=== PATIENT | female | born 1970 | race Caucasian/White ===

== ENCOUNTER 2016-08-07 22:18 | Emergency (ER) | payer BC ==
[2016-08-07] MEDS ORDERED: KETOROLAC 30 MG/ML VIAL IVP ONE (23:01)
[2016-08-07] MEDS ORDERED: PROMETHAZINE HCL 25 MG/ML VIAL IVP ONE (23:01)
[2016-08-07] MEDS ORDERED: 0.9 % SODIUM CHLORIDE 1,000 ML BAG IV ONE (23:02)
[2016-08-07 23:28] LABS: HEMATOCRIT 38.2 % (35.0-47.0); HEMOGLOBIN 12.8 gm/dl (11.6-16.0); MEAN CELL VOLUME 95.7 fl (81-97); MEAN CORPUSCULAR HEMOGLOBIN 32.1 pg (27-33); MEAN CORPUSCULAR HGB CONC 33.5 g/dl (32-36); MEAN PLATELET VOLUME 11.2 fl (7.4-10.4); PLATELET COUNT 272 K/uL (130-400); RED BLOOD COUNT 3.99 M/uL (3.80-5.40); RED CELL DISTRIBUTION WIDTH 12.7 % (11.5-14.5); WHITE BLOOD COUNT W/O DIFF 11.6 K/uL (4.2-12.2)
[2016-08-07 23:40] LABS: ANION GAP 11.8 (7-16); BLOOD UREA NITROGEN 13 mg/dL (7-17); CARBON DIOXIDE 24.2 mmol/L (22-30); CREATININE 0.6 mg/dL (0.52-1.04); EST GLOMERULAR FILTRATION RATE > 60 ml/min; GLUCOSE,RANDOM 104 mg/dL (70-110)
--- NOTE | 2016-08-08 00:26 | Emergency Department Record ---
History of Present Illness - General Chief Complaint: Headache Migraine Stated Complaint: HERRMANN,JAW PAIN,VOMITING Time Seen by Provider: 08/07/16 22:47 Source: Patient Mode of Arrival: Ambulatory Limitations: No limitations - History of Present Illness Initial Comments: pt has her typical migrain with vomiting 5x. Onset/Timin -: Hour(s) Onset Description: Awoke with symptoms Location: Diffuse, Frontal Severity scale (1-10): 8 Quality: Pulsatile, Throbbing, Similar to previous headaches Consistency: Constant Improves With: Rest Worsens With: Light Context: Recent URI Associated Symptoms: Nausea, Photophobia, Vomiting Treatments Prior to Arrival: Migraine medication - Related Data Home Medications Medication Instructions Recorded Confirmed Last Taken Adalimumab [Humira] 60 mg SQ ASDIR 06/16/15 03/31/16 03/30/16 Aripiprazole [Abilify] 5 mg PO DAILY 06/16/15 03/31/16 03/30/16 Duloxetine HCl [Cymbalta] 20 mg PO BID 06/16/15 03/31/16 03/30/16 Gabapentin [Neurontin] 300 mg PO TID 06/16/15 03/31/16 03/30/16 Tramadol HCl [Ultram ER] 300 mg PO DAILY 06/16/15 03/31/16 03/30/16 Hydrocodone/Acetaminophen [[place] 1 tab PO Q8H PRN 03/11/16 03/31/16 03/30/16 7.5mg/325mg] Allergies Allergy/AdvReac Type Severity Reaction Status Date / Time Iodinated Contrast Media - Allergy HIVES Verified 08/07/16 22:31 Oral and Travel Screening - Travel/Exposure Within Last 30 Days Have you traveled within the last 30 days?: No - Travel Symptoms Symptom Screening: None Review of Systems Reviewed: No additional complaints except as noted below Constitutional: Reports: As per HPI. Denies: Chills, Fever, Malaise, Night sweats, Weakness, Weight change Eyes: Reports: As per HPI. Denies: Eye discharge, Eye pain, Photophobia, Vision change ENT: Reports: As per HPI. Denies: Congestion, Dental pain, Ear pain, Epistaxis , Hearing loss, Throat pain Respiratory: Reports: As per HPI. Denies: Cough, Dyspnea, Hemoptysis, Stridor, Wheezes Cardiovascular: Reports: As per HPI. Denies: Arrhythmia, Chest pain, Dyspnea on exertion, Edema, Murmurs, Orthopnea, Palpitations, Paroxysmal nocturnal dyspnea, Rheumatic Fever, Syncope Endocrine: Reports: As per HPI. Denies: Fatigue, Heat or cold intolerance, Polydipsia, Polyuria Gastrointestinal: Reports: As per HPI. Denies: Abdominal pain, Constipation, Diarrhea, Hematemesis, Hematochezia, Melena, Nausea, Vomiting Genitourinary: Reports: As per HPI. Denies: Abnormal menses, Discharge, Dyspareunia, Dysuria, Frequency, Hematuria, Incontinence, Retention, Urgency Musculoskeletal: Reports: As per HPI. Denies: Arthralgia, Back pain, Gout, Joint swelling, Myalgia, Neck pain Skin: Reports: As per HPI. Denies: Bruising, Change in color, Change in hair/ nails, Lesions, Pruritus, Rash Neurological: Reports: As per HPI. Denies: Abnormal gait, Confusion, Headache, Numbness, Paresthesias, Seizure, Tingling, Tremors, Vertigo, Weakness Psychiatric: Reports: As per HPI. Denies: Anxiety, Auditory hallucinations, Depression, Homicidal thoughts, Suicidal thoughts, Visual hallucinations Hematological/Lymphatic: Reports: As per HPI. Denies: Anemia, Blood Clots, Easy bleeding, Easy bruising, Swollen glands Past Medical History - SOCIAL HISTORY Smoking Status: Former smoker - RESPIRATORY Hx Respiratory Disorders: No - CARDIOVASCULAR Hx Cardio Disorders: No - NEURO Hx Neuro Disorders: Yes Hx Headaches: Yes Hx Neuropathy: Yes - GI Hx GI Disorders: No - Hx Genitourinary Disorders: No - ENDOCRINE Hx Endocrine Disorders: No - MUSCULOSKELETAL Hx Musculoskeletal Disorders: Yes Hx Arthritis: Yes (RA) - PSYCH Hx Psych Problems: Yes Hx Anxiety: Yes Hx Depression: Yes - HEMATOLOGY/ONCOLOGY Hx Hematology/Oncology Disorders: No Family Medical History Any Significant Family History?: Yes Hx Cancer: Grandparents Hx Heart Disease: Grandparents Hx HTN: Grandparents Physical Exam - General General Appearance: Alert, Oriented x3, Cooperative, Mild distress - Head Head exam: Normal inspection - Eye Eye exam: Normal appearance, PERRL, EOMI Pupils: Normal accommodation - ENT ENT exam: Normal exam, Mucous membranes dry, Normal external ear exam, Normal orophraynx Ear exam: Normal external inspection. negative: External canal tenderness Nasal Exam: Normal inspection. negative: Discharge, Sinus tenderness Mouth exam: Normal external inspection, Tongue normal Teeth exam: Normal inspection. negative: Dental caries Throat exam: Normal inspection. negative: Tonsillar erythema, Tonsillar exudate - Neck Neck exam: Normal inspection, Full ROM. negative: Tenderness - Respiratory Respiratory exam: Normal lung sounds bilaterally. negative: Respiratory distress - Cardiovascular Cardiovascular Exam: Regular rate, Normal rhythm, Normal heart sounds - GI/Abdominal GI/Abdominal exam: Soft, Normal bowel sounds. negative: Tenderness - Rectal Rectal exam: Deferred - exam: Deferred - Extremities Extremities exam: Normal inspection, Full ROM, Normal capillary refill. negative: Tenderness - Back Back exam: Reports: Normal inspection, Full ROM. Denies: Muscle spasm, Rash noted, Tenderness - Neurological Neurological exam: Alert, CN II-XII intact, Normal gait, Oriented X3 - Psychiatric Psychiatric exam: Normal affect, Normal mood - Skin Skin exam: Dry, Intact, Normal color, Warm Course Vital Signs 08/07/16 22:26 Temperature 98.1 F Pulse Rate [ 76 Pulse Ox Probe] Respiratory 16 Rate Blood Pressure 118/76 [Left Arm] Pulse Ox 100 - Reevaluation(s) Reevaluation #1: 08/08/16 00:23 pt feels much better Medical Decision Making - Lab Data Result diagrams: 08/07/16 23:20 08/07/16 23:20 Lab Results 08/07/16 08/07/16 08/07/16 Range/Units 23:20 23:20 23:20 WBC 11.6 (4.2-12.2) K/uL RBC 3.99 (3.80-5.40) M/uL Hgb 12.8 (11.6-16.0) gm/dl Hct 38.2 (35.0-47.0) % MCV 95.7 (81-97) fl MCH 32.1 (27-33) pg MCHC 33.5 (32-36) g/dl RDW 12.7 (11.5-14.5) % Plt Count 272 (130-400) K/uL MPV 11.2 H (7.4-10.4) fl Neutrophils % 86.0 H (47-80) % Band Neutrophils % 0.0 (0-5) % Lymphocytes % 12.0 L (16-45) % Monocytes % 2.0 (0-9) % Eosinophils % 0.0 (0-6) % Basophils % 0.0 (0-6) % Sodium 136 (136-145) mmol/L Potassium 4.9 (3.5-5.1) mmol/L Chloride 100 (98-107) mmol/L Carbon Dioxide 24.2 (22-30) mmol/L Anion Gap 11.8 (7-16) BUN 13 (7-17) mg/dL Creatinine 0.6 (0.52-1.04) mg/dL Estimated GFR > 60 ml/min Random Glucose 104 (70-110) mg/dL Calcium 9.6 (8.5-10.1) mg/dL Group A Strep Screen Negative (NEGATIVE) Disposition Disposition: Discharge Clinical Impression: Migraine Qualifiers: Migraine type: unspecified Status migrainosus presence: with status migrainosus Intractability: intractable Qualified Code(s): G43.911 - Migraine, unspecified, intractable, with status migrainosus Vomiting Qualifiers: Vomiting type: unspecified Vomiting Intractability: non-intractable Nausea presence: with nausea Qualified Code(s): R11.2 - Nausea with vomiting, unspecified Disposition: Home, Self-Care Condition: (1) Good Instructions: Migraine Headache (ED), Acute Nausea and Vomiting (ED) Additional Instructions: follow up with family doctor. return sooner if worse. Forms: Patient Portal Access
== END 2016-08-08 01:00 | disposition home or self-care (01) ==
LOC: ER 22:18
DX: G43.911 Migraine, unspecified, intractable, with status migrainosus (principal); R11.2 Nausea with vomiting, unspecified; H53.149 Visual discomfort, unspecified
CPT/HCPCS: 99284 ×2; 96374; 96375; 96361; 80048; 87880; 85027; J1885; J2550; J7030

== ENCOUNTER 2016-09-27 02:48 | Emergency (ER) | payer MEDICARE, BC ==
[2016-09-27] MEDS ORDERED: DIPHENHYDRAMINE HCL IV 50 MG/ML VIAL IVP ONE (02:54)
[2016-09-27] MEDS ORDERED: METOCLOPRAMIDE HCL 10 MG/2 ML VIAL IVP ONE ×2 (02:54→03:14)
[2016-09-27] MEDS ORDERED: 0.9 % SODIUM CHLORIDE 1000ML 1,000 ML IV SCH (03:00)
--- NOTE | 2016-09-27 03:04 | Emergency Department Record ---
History of Present Illness - General Chief Complaint: Headache Migraine Stated Complaint: HEADACHE,VOMITING Time Seen by Provider: 09/27/16 02:53 Source: Patient Mode of Arrival: Ambulatory Limitations: No limitations - History of Present Illness Initial Comments: 46 yo female presents to ED with a CC of headache and nausea/vomiting that began approximately 14 hours ago. Patient reports similar symptoms previously related to migraine headaches. Patient denies fevers, chills, neck pain or stiffness symptoms. MD Complaint: Headache Onset/Timin -: Hour(s) Onset Description: Gradual Location: Diffuse Severity: Moderate Severity scale (1-10): 8 Quality: Similar to previous headaches Consistency: Constant, Getting worse Improves With: Nothing Worsens With: None Context: Other Associated Symptoms: Vomiting, Other Other Symptoms: Other Treatments Prior to Arrival: Prescription analgesic Treatment Prior to Arrival Comment:: tramadol 300mg extended release and norco - Related Data Home Medications Medication Instructions Recorded Confirmed Last Taken Adalimumab [Humira] 60 mg SQ ASDIR 06/16/15 09/27/16 03/30/16 Aripiprazole [Abilify] 5 mg PO DAILY 06/16/15 09/27/16 03/30/16 Duloxetine HCl [Cymbalta] 20 mg PO BID 06/16/15 09/27/16 03/30/16 Gabapentin [Neurontin] 300 mg PO TID 06/16/15 09/27/16 03/30/16 Tramadol HCl [Ultram ER] 300 mg PO DAILY 06/16/15 09/27/16 03/30/16 Hydrocodone/Acetaminophen [[place] 1 tab PO Q8H PRN 03/11/16 09/27/16 03/30/16 7.5mg/325mg] Allergies Allergy/AdvReac Type Severity Reaction Status Date / Time Iodinated Contrast Media - Allergy HIVES Verified 08/07/16 22:31 Oral and Travel Screening - Travel/Exposure Within Last 30 Days Have you traveled within the last 30 days?: No - Travel/Exposure Within Last Year Have you traveled outside the [place] in the last year?: No - Additonal Travel Details Have you been exposed to anyone with a communicable illness?: No - Travel Symptoms Symptom Screening: None Review of Systems Constitutional: Denies: Chills, Fever, Malaise, Night sweats Eyes: Denies: Eye discharge, Eye pain ENT: Denies: Congestion, Ear pain, Epistaxis Respiratory: Denies: Cough, Dyspnea Cardiovascular: Denies: Chest pain, Dyspnea on exertion Endocrine: Denies: Fatigue, Heat or cold intolerance Gastrointestinal: Denies: Abdominal pain, Nausea, Vomiting Genitourinary: Denies: Dysuria, Frequency, Hematuria, Incontinence Musculoskeletal: Denies: Arthralgia, Back pain, Gout, Joint swelling Skin: Denies: Bruising, Change in color Neurological: Reports: Headache. Denies: Abnormal gait, Confusion, Seizure Psychiatric: Denies: Anxiety Hematological/Lymphatic: Denies: Anemia, Blood Clots Past Medical History - SOCIAL HISTORY Smoking Status: Former smoker Alcohol Use: Rare Drug Use: None - RESPIRATORY Hx Respiratory Disorders: No - CARDIOVASCULAR Hx Cardio Disorders: No - NEURO Hx Neuro Disorders: Yes Hx Headaches: Yes Hx Neuropathy: Yes - GI Hx GI Disorders: No - Hx Genitourinary Disorders: No - ENDOCRINE Hx Endocrine Disorders: No - MUSCULOSKELETAL Hx Musculoskeletal Disorders: Yes Hx Arthritis: Yes (RA) Hx Fibromyalgia: Yes - PSYCH Hx Psych Problems: Yes Hx Anxiety: Yes Hx Depression: Yes - HEMATOLOGY/ONCOLOGY Hx Hematology/Oncology Disorders: No Family Medical History Any Significant Family History?: No Hx Cancer: Grandparents Hx Heart Disease: Grandparents Hx HTN: Grandparents Physical Exam - General General Appearance: Alert, Oriented x3, Cooperative, Mild distress Limitations: No limitations - Head Head exam: Atraumatic, Normocephalic, Normal inspection Head exam detail: negative: Abrasion, Contusion, Briones's sign, General tenderness, Hematoma, Laceration - Eye Eye exam: Normal appearance. negative: Conjunctival injection, Periorbital swelling, Periorbital tenderness, Scleral icterus - ENT Ear exam: negative: Auricular hematoma, Auricular trauma Nasal Exam: negative: Active bleeding, Discharge, Dried blood, Foreign body Mouth exam: negative: Drooling, Laceration, Muffled voice, Tongue elevation - Neck Neck exam: Normal inspection. negative: Meningismus, Tenderness - Respiratory Respiratory exam: Normal lung sounds bilaterally. negative: Rales, Respiratory distress, Rhonchi, Stridor - Cardiovascular Cardiovascular Exam: Regular rate, Normal rhythm, Normal heart sounds - GI/Abdominal GI/Abdominal exam: Soft. negative: Rebound, Rigid, Tenderness - Rectal Rectal exam: Deferred - exam: Deferred - Extremities Extremities exam: Normal inspection. negative: Calf tenderness, Pedal edema, Tenderness - Back Back exam: Denies: CVA tenderness (R), CVA tenderness (L) - Neurological Neurological exam: Alert, Normal gait, Oriented X3 - Psychiatric Psychiatric exam: Normal affect, Normal mood - Skin Skin exam: Normal color. negative: Abrasion Type of lesion: negative: abrasion Course - Reevaluation(s) Reevaluation #1: 09/27/16 04:22 Patient reports that her symptoms are significantly improved, and appears stable for discharge at this time. Disposition Disposition: Discharge Clinical Impression: Acute headache Qualifiers: Headache type: unspecified Intractability: not intractable Qualified Code(s): R51 - Headache Disposition: Home, Self-Care Condition: (2) Stable Instructions: Acute Headache (ED) Additional Instructions: Return to ED if your symptoms worsen or if you have any concerns. Follow-up with your family doctor in 3-5 days. Forms: Patient Portal Access Time of Disposition: 04:23
[2016-09-27] MEDS ORDERED: KETOROLAC 30 MG/ML VIAL IVP ONE (03:08)
[2016-09-27] MEDS ORDERED: ONDANSETRON HCL IV 4 MG/2 ML VIAL IVP ONE (03:10)
[2016-09-27] MEDS ORDERED: PROMETHAZINE HCL 25 MG in 0.9 % SODIUM CHLORIDE 100ML 50 ML IVP ONE (03:10)
== END 2016-09-27 04:38 | disposition home or self-care (01) ==
LOC: ER 02:48
DX: R51 Headache (principal); R11.2 Nausea with vomiting, unspecified
CPT/HCPCS: 99284 ×2; 96374; 96375; 96361; J1885; J1200; J2765; J7030

== ENCOUNTER 2016-10-08 18:16 | Emergency (ER) | payer BC, MEDICARE ==
--- NOTE | 2016-10-08 18:32 | Emergency Department Record ---
History of Present Illness - General Chief complaint: ENT Stated complaint: SORE THROAT,COUGH,HERRMANN Time Seen by Provider: 10/08/16 18:24 Source: Patient, Family Mode of Arrival: Ambulatory Limitations: No limitations - History of Present Illness Initial comments: 46 yo female presents with about one month of persistent cough, congestion, and sore throat. No nausea, vomiting or diarrhea. The cough is productive. No blood in the sputum. She has noted some swollen glands as well. She saw her PCP about a week ago and was put on Keflex without any significant improvement. She did not have a flu shot or a pneumonia shot. She is not a smoker. She does have RA and take Humira. PCP is Dr Mcghee. No history of asthma, copd, or underlying lung disease. MD complaint: Sore throat, Other (Cough) Onset/Timin -: Month(s) Location: R ear, L ear, Nose, Throat Severity: Mild Severity scale (1-10): 3 Quality: Aching Consistency: Intermittent Improves with: Other medication Worsens with: None Associated Symptoms: Cough, Fever, Sore throat, Other - Related Data Home Medications Medication Instructions Recorded Confirmed Last Taken Adalimumab [Humira] 60 mg SQ ASDIR 06/16/15 10/08/16 10/08/16 Aripiprazole [Abilify] 5 mg PO DAILY 06/16/15 10/08/16 10/08/16 Duloxetine HCl [Cymbalta] 20 mg PO BID 06/16/15 10/08/16 10/08/16 Gabapentin [Neurontin] 300 mg PO TID 06/16/15 10/08/16 10/08/16 Tramadol HCl [Ultram ER] 300 mg PO DAILY 06/16/15 10/08/16 10/08/16 Hydrocodone/Acetaminophen [[place] 1 tab PO Q8H PRN 03/11/16 10/08/16 10/08/16 7.5mg/325mg] Omeprazole 40 mg PO BID 10/08/16 10/08/16 10/08/16 Previous Rx's Medication Instructions Recorded Benzonatate [Tessalon] 1 cap PO Q8H PRN #20 cap 10/08/16 Levofloxacin [Levaquin] 750 mg PO DAILY #7 tab 10/08/16 Allergies Allergy/AdvReac Type Severity Reaction Status Date / Time Iodinated Contrast Media - Allergy HIVES Verified 10/08/16 18:26 Oral and Travel Screening - Travel/Exposure Within Last 30 Days Have you traveled within the last 30 days?: No Review of Systems Constitutional: Denies: Chills, Fever, Night sweats, Weakness Eyes: Denies: Eye discharge, Vision change ENT: Reports: Congestion, Throat pain. Denies: Ear pain, Epistaxis Respiratory: Reports: Cough. Denies: Dyspnea, Hemoptysis, Stridor, Wheezes Cardiovascular: Denies: Chest pain, Palpitations, Syncope Endocrine: Denies: Fatigue Gastrointestinal: Denies: Abdominal pain, Diarrhea, Nausea, Vomiting Genitourinary: Denies: Dysuria, Frequency Musculoskeletal: Denies: Arthralgia, Back pain, Joint swelling, Myalgia, Neck pain Skin: Denies: Bruising, Change in color, Rash Neurological: Denies: Headache Psychiatric: Denies: Anxiety Hematological/Lymphatic: Reports: As per HPI, Swollen glands. Denies: Blood Clots, Easy bleeding, Easy bruising Past Medical History - SOCIAL HISTORY Smoking Status: Former smoker Alcohol Use: None Drug Use: None - RESPIRATORY Hx Respiratory Disorders: No - CARDIOVASCULAR Hx Cardio Disorders: No - NEURO Hx Neuro Disorders: Yes Hx Headaches: Yes Hx Neuropathy: Yes - GI Hx GI Disorders: No - Hx Genitourinary Disorders: Yes Hx UTI: Yes - ENDOCRINE Hx Endocrine Disorders: No - MUSCULOSKELETAL Hx Musculoskeletal Disorders: Yes Hx Arthritis: Yes (RA) Hx Fibromyalgia: Yes - PSYCH Hx Psych Problems: Yes Hx Anxiety: Yes Hx Depression: Yes - HEMATOLOGY/ONCOLOGY Hx Hematology/Oncology Disorders: No Family Medical History Any Significant Family History?: Yes Hx Cancer: Grandparents Hx Heart Disease: Grandparents Hx HTN: Grandparents Physical Exam - General General Appearance: Alert, Oriented x3, Cooperative, No acute distress Limitations: No limitations - Head Head exam: Normal inspection - Eye Eye exam: Normal appearance, PERRL. negative: Conjunctival injection, Periorbital swelling - ENT ENT exam: Normal exam, Mucous membranes moist, Normal orophraynx, TM's normal bilaterally Ear exam: Normal external inspection. negative: External canal tenderness Nasal Exam: Discharge (greenish). negative: Normal inspection, Dried blood, Sinus tenderness Mouth exam: Normal external inspection, Tongue normal Teeth exam: Normal inspection. negative: Dental caries Throat exam: Tonsillar erythema. negative: Tonsillomegaly, Tonsillar exudate, R peritonsillar mass, L peritonsillar mass - Neck Neck exam: Normal inspection, Full ROM, Lymphadenopathy (mild anterior adenopathy, soft and mobile, small). negative: Tenderness - Respiratory Respiratory exam: Normal lung sounds bilaterally. negative: Accessory muscle use, Decreased breath sounds, Prolonged expiratory, Respiratory distress, Rhonchi, Stridor, Wheezes - Cardiovascular Cardiovascular Exam: Regular rate, Normal rhythm, Normal heart sounds - GI/Abdominal GI/Abdominal exam: Soft, Normal bowel sounds. negative: Tenderness - Rectal Rectal exam: Deferred - exam: Deferred - Extremities Extremities exam: Normal inspection, Full ROM, Normal capillary refill. negative: Tenderness - Back Back exam: Reports: Normal inspection, Full ROM. Denies: Muscle spasm, Rash noted, Tenderness - Neurological Neurological exam: Alert, Normal gait, Oriented X3 - Psychiatric Psychiatric exam: Normal affect, Normal mood - Skin Skin exam: Dry, Intact, Normal color, Warm Course Vital Signs 10/08/16 18:18 Temperature 97.9 F Pulse Rate 79 Respiratory 18 Rate Blood Pressure 129/87 Pulse Ox 98 - Reevaluation(s) Reevaluation #1: The influenza swab was negative The CXR report was no acute process The plan will be to DC on levaquin to cover atypical infections and bacterial bronchitis given she is on Humira 10/08/16 18:54 Reevaluation #2: Vitals reviewed. No tachycardia or hypoxia 10/08/16 18:58 Disposition Disposition: Discharge Clinical Impression: Bronchitis Disposition: Home, Self-Care Condition: (1) Good Instructions: Acute Bronchitis (ED) Additional Instructions: Call your doctor for a recheck. Call tomorrow to schedule the next available appointment Return if fever, worse, short of breath or any new concerns Prescriptions: Levofloxacin [Levaquin] 750 mg PO DAILY #7 tab Benzonatate [Tessalon] 1 cap PO Q8H PRN #20 cap PRN Reason: Cough Forms: Patient Portal Access Time of Disposition: 18:56
[2016-10-08] MEDS ORDERED: LEVOFLOXACIN 500 MG TABLET PO ONE (18:41)
[2016-10-08 18:42] LABS: STREP A SCREEN NEGATIVE (NEGATIVE)
[2016-10-08 18:49] LABS: INFLUENZA A NEGATIVE (NEGATIVE); INFLUENZA B NEGATIVE (NEGATIVE)
--- NOTE | 2016-10-14 09:51 | RADIOLOGY REPORT ---
EXAM: CHEST, TWO VIEWS HISTORY: DIFFICULTY BREATHING. TECHNIQUE: Frontal and lateral views of the chest were performed. FINDINGS: The heart size is normal. The lung alvarez are clear. The osseous structures are normal. IMPRESSION: NEGATIVE CHEST EXAMINATION. JOB NUMBER: [id number] MTDD
== END 2016-10-08 19:14 | disposition home or self-care (01) ==
LOC: ER 18:16
DX: J20.9 Acute bronchitis, unspecified (principal); J02.9 Acute pharyngitis, unspecified; F17.210 Nicotine dependence, cigarettes, uncomplicated
CPT/HCPCS: 71020; 86308; 87400; 87880; 99283

== ENCOUNTER 2016-11-03 04:46 | Emergency (ER) | payer BC, MEDICARE ==
[2016-11-03] MEDS ORDERED: 0.9 % SODIUM CHLORIDE 1,000 ML BAG IV ONE (04:53)
[2016-11-03] MEDS ORDERED: DIPHENHYDRAMINE HCL IV 50 MG/ML VIAL IVP ONE (04:53)
[2016-11-03] MEDS ORDERED: METOCLOPRAMIDE HCL 10 MG/2 ML VIAL IVP ONE (04:54)
[2016-11-03] MEDS ORDERED: KETOROLAC 30 MG/ML VIAL IVP ONE (04:54)
--- NOTE | 2016-11-03 05:00 | Emergency Department Record ---
History of Present Illness - General Chief Complaint: Headache Migraine Stated Complaint: JAW PAIN/HEADACHE Time Seen by Provider: 11/03/16 04:51 Source: Patient, Family Mode of Arrival: Ambulatory Limitations: No limitations - History of Present Illness Initial Comments: 46 yo female presents with headache and jaw pain. She states she has a history of frequent headache and jaw pain with the same characteristics. She has some mild light sensitivity and nausea. 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 This episode started last evening and has gradually worsened. No new of unusual features form prior episodes. Gradual worsening. NO fevers. NO swelling or redness of the TMJ regions. PCP is Dr Mcghee in [place]. MD Complaint: Headache, Other (Jaw pain) Onset/Timin -: Hour(s) Onset Description: Gradual Location: Frontal Severity scale (1-10): 9 Quality: Similar to previous headaches Consistency: Constant, Getting worse Improves With: Nothing Worsens With: Light, Movement of head/neck, Noise Associated Symptoms: Nausea, Photophobia, Sensitivity to sound, Vomiting Treatments Prior to Arrival: None - Related Data Home Medications Medication Instructions Recorded Confirmed Last Taken Adalimumab [Humira] 60 mg SQ ASDIR 06/16/15 11/03/16 10/08/16 Aripiprazole [Abilify] 5 mg PO DAILY 06/16/15 11/03/16 10/08/16 Duloxetine HCl [Cymbalta] 20 mg PO BID 06/16/15 11/03/16 10/08/16 Gabapentin [Neurontin] 300 mg PO TID 06/16/15 11/03/16 10/08/16 Tramadol HCl [Ultram ER] 300 mg PO DAILY 06/16/15 11/03/16 10/08/16 Hydrocodone/Acetaminophen [[place] 1 tab PO Q8H PRN 03/11/16 11/03/16 10/08/16 7.5mg/325mg] Omeprazole 40 mg PO BID 10/08/16 11/03/16 10/08/16 Allergies Allergy/AdvReac Type Severity Reaction Status Date / Time Iodinated Contrast Media - Allergy HIVES Verified 10/08/16 18:26 Oral and Travel Screening - Travel/Exposure Within Last 30 Days Have you traveled within the last 30 days?: No Review of Systems Constitutional: Denies: Chills, Fever, Weakness Eyes: Reports: Photophobia. Denies: Eye discharge, Eye pain, Vision change ENT: Denies: Congestion, Throat pain Respiratory: Denies: Cough, Dyspnea, Hemoptysis, Stridor, Wheezes Cardiovascular: Denies: Chest pain, Palpitations, Syncope Endocrine: Denies: Fatigue Gastrointestinal: Reports: Nausea. Denies: Abdominal pain, Diarrhea, Vomiting Genitourinary: Denies: Dyspareunia, Dysuria, Urgency Musculoskeletal: Reports: Neck pain. Denies: Arthralgia, Back pain, Myalgia Skin: Denies: Bruising, Change in color, Rash Neurological: Reports: Headache. Denies: Abnormal gait, Confusion, Numbness, Tingling, Tremors, Vertigo, Weakness Psychiatric: Denies: Anxiety Hematological/Lymphatic: Denies: Blood Clots, Easy bleeding, Easy bruising, Swollen glands Past Medical History - SOCIAL HISTORY Smoking Status: Former smoker Alcohol Use: None Drug Use: None - RESPIRATORY Hx Respiratory Disorders: No - CARDIOVASCULAR Hx Cardio Disorders: No - NEURO Hx Neuro Disorders: Yes Hx Headaches: Yes Hx Neuropathy: Yes - GI Hx GI Disorders: No - Hx Genitourinary Disorders: Yes Hx UTI: Yes - ENDOCRINE Hx Endocrine Disorders: No - MUSCULOSKELETAL Hx Musculoskeletal Disorders: Yes Hx Arthritis: Yes (RA) Hx Fibromyalgia: Yes - PSYCH Hx Psych Problems: Yes Hx Anxiety: Yes Hx Depression: Yes - HEMATOLOGY/ONCOLOGY Hx Hematology/Oncology Disorders: No Family Medical History Any Significant Family History?: Yes Hx Cancer: Grandparents Hx Heart Disease: Grandparents Hx HTN: Grandparents Physical Exam - General General Appearance: Alert, Oriented x3, Cooperative, No acute distress Limitations: No limitations - Head Head exam: Atraumatic, Normocephalic, Normal inspection Head exam detail: negative: Abrasion, Contusion, General tenderness - Eye Eye exam: Normal appearance, PERRL, EOMI. negative: Conjunctival injection, Periorbital swelling, Scleral icterus - ENT ENT exam: Normal exam, Mucous membranes moist, Normal orophraynx Ear exam: Normal external inspection. negative: External canal tenderness Nasal Exam: Normal inspection. negative: Discharge, Sinus tenderness Mouth exam: Normal external inspection, Tongue normal Teeth exam: Normal inspection. negative: Dental caries Throat exam: Normal inspection, Other (Bilateral TMJ tenderness, full ROM of the jaw). negative: Tonsillar erythema, Tonsillar exudate - Neck Neck exam: Normal inspection, Full ROM. negative: Lymphadenopathy, Meningismus , Tenderness - Respiratory Respiratory exam: Normal lung sounds bilaterally. negative: Respiratory distress - Cardiovascular Cardiovascular Exam: Regular rate, Normal rhythm, Normal heart sounds - Rectal Rectal exam: Deferred - exam: Deferred - Extremities Extremities exam: Normal inspection, Full ROM, Normal capillary refill. negative: Tenderness - Back Back exam: Reports: Normal inspection - Neurological Neurological exam: Alert, CN II-XII intact, Normal gait, Oriented X3. negative : Altered, Motor sensory deficit - Psychiatric Psychiatric exam: Normal affect, Normal mood. negative: Agitated, Anxious - Skin Skin exam: Dry, Intact, Normal color, Warm Course Vital Signs 11/03/16 04:49 Pulse Rate 92 H Respiratory 18 Rate Blood Pressure 124/83 Pulse Ox 98 - Reevaluation(s) Reevaluation #1: EMR reviewed Multiple prior visits noted for the same thing. 11/03/16 04:59 Reevaluation #2: The patient reports good improvement with the medications No current nausea We discussed home care and close follow up with her PCP 11/03/16 05:51 Disposition Disposition: Discharge Clinical Impression: Acute headache Qualifiers: Headache type: unspecified Intractability: not intractable Qualified Code(s): R51 - Headache Disposition: Home, Self-Care Condition: (1) Good Instructions: Acute Headache (ED) Additional Instructions: Rest and stay well hydrated Call your doctor for close follow up Return if you have any uncontrolled pain, nausea, or any new concerns or symptoms. Forms: Patient Portal Access Time of Disposition: 05:53
== END 2016-11-03 06:24 | disposition home or self-care (01) ==
LOC: ER 04:46
DX: R51 Headache (principal); R68.84 Jaw pain; R11.0 Nausea; H53.149 Visual discomfort, unspecified; M06.9 Rheumatoid arthritis, unspecified
CPT/HCPCS: 99284 ×2; 96374; 96375; J1885; J1200; J2765; J7030